=== PATIENT | male | born 1965 | race Caucasian/White ===

== ENCOUNTER → 2020-08-06 00:08 | Outpatient (CLI) | payer OTHER, SELFPAY ==
[2020-08-06 17:44] LABS: SARS-CoV-2 RNA PCR Negative
== END ==
PROVIDERS: PCP Internal Medicine; Visit Provider Internal Medicine Gastroenterology
DX: Z01.812 Encounter for preprocedural laboratory examination (principal); Z20.822 Contact with and (suspected) exposure to COVID-19
CPT/HCPCS: C9803; U0003; U0005

== ENCOUNTER 2020-08-09 01:08 | Day surgery (SDC) | payer OTHER, SELFPAY ==
[2020-07-26 14:46] VITALS: BMI 26.4
[2020-08-09 08:14] VITALS: BMI 26.6
[2020-08-09 08:18] VITALS: BP 117/72; PULSE 86; RESP 16; TEMP 36.2; O2SAT 99
--- NOTE | 2020-08-09 08:23 | WPDANESEPPF ---
Anes - Initial Pre Proc Eval Procedure: Operation Date: 08/09/20 09:30 Proposed Procedures p Colonoscopy - Sean Tang MD Date/Time: 08/09/20 08:23 Surgeon: Sean Tang MD Pre Op Diagnosis: Blood in Stool Patient Data Age: 55 Gender: M Height: 5 ft 5 in Weight: 72.8 kg Last Vital Signs Temp 97.1 F L 08/09/20 08:18 Pulse 86 08/09/20 08:18 Resp 16 08/09/20 08:18 BP 117/72 08/09/20 08:18 Pulse Ox 99 08/09/20 08:18 Allergies Allergy/AdvReac Type Severity Reaction Status Date / Time No Known Allergies Allergy Verified 08/09/20 08:13 Home Medications Medication Instructions Recorded Confirmed Type aspirin 81 mg tablet,delayed 81 mg PO DAILY 05/27/20 07/26/20 History release cetirizine 10 mg capsule 10 mg PO DAILY PRN 05/27/20 07/26/20 History Patient hx anesthesia problems: none Family hx anesthesia problems: none PMFSH Past Medical History Medical History (Updated 08/09/20 @ 08:22 by Yemi Burrell MD) Family history of colon cancer in father Hyperlipidemia SIENA (obstructive sleep apnea) Family History Family History Mother Family history of thyroid disease Father Carcinoma of colon Social History Social History (Updated 07/26/20 @ 14:45 by Ana Murguia RN) Smoking status: Never smoker Second hand tobacco smoke exposure: No Alcohol intake: current Drinks per week: 1 Alcohol use details: PT HAS AN OCCASSIONLA BEER Substance use: never Substance use type: does not use Living arrangements: with family Additional living arrangements comments: LIVES WITH SPOUSE SREEKANTH Gender identity (if verbalized by the patient): Male Sexual Orientation (if Verbalized by the Patient): Straight or Heterosexual Spiritual care concerns: No Agree to blood products: Yes Anes - Eval Final PreProcedure Day of Procedure 08/09/20 08:23 Patient weight: normal Heart: regular rate and rhythm Lungs: clear to auscultation Airway: Mallampati scale class II Neurological: alert and oriented Last oral intake: >/= 8 hours ASA classification: II Emergent: no Anesthetic plan: proceed Anesthesia type and monitoring: general GIVS and standard monitoring Informed Consent: The patient's anesthetic plan and its attendant risks and benefits were discussed with the patient/family/POA. Questions were solicited and answers provided to the satisfaction of the patient/family/POA.
[2020-08-09] MEDS: LACTATED RINGERS 1,000 ML 150 ML IV CONT (08:25)
--- NOTE | 2020-08-09 08:38 | PM.HPGS ---
History of Present Illness History of Present Illness Consent: Risks, benefits, and alternatives have been discussed and questions answered. Patient agrees to proceed with procedure. Chief complaint: Blood in Stool Narrative: Kranthi An is a 55 year old male with intermittent rectal bleeding. His father had colon cancer at 60's and he has been getting his colonoscopies every 5 years (already had 3) and last one 2018. Review of Systems Constitutional: Constitutional: Denies headache(s) and Denies weakness Eyes: Eyes: Denies blurry vision ENT: Reports Normal hearing present, Denies headache(s) and Denies neck pain Cardiovascular: Cardiovascular: Denies chest pain and Denies dyspnea Respiratory: Respiratory: Denies dyspnea Gastrointestinal: Gastrointestinal: Reports no additional gastrointestinal complaints Genitourinary: Genitourinary: Denies dysuria Musculoskeletal: Musculoskeletal: Denies neck pain Integumentary/Breasts: Skin/Breast: Denies dry skin Neurologic: Reports Normal hearing present, Denies headache(s) and Denies weakness Psychiatric: Psychiatric: Denies anxiety Endocrine: Endocrine: Denies change in body appearance Hematologic/Lymphatic: Hematologic/Lymphatic: Denies easy bleeding Allergic/Immunologic: Allergic/Immunologic: Denies urticaria PMF Past Medical History Medical History (Updated 08/09/20 @ 08:22 by Yemi Burrell MD) Family history of colon cancer in father Hyperlipidemia SIENA (obstructive sleep apnea) Family History Family History Mother Family history of thyroid disease Father Carcinoma of colon Social History Social History (Updated 07/26/20 @ 14:45 by Ana Murguia RN) Smoking status: Never smoker Second hand tobacco smoke exposure: No Alcohol intake: current Drinks per week: 1 Alcohol use details: PT HAS AN OCCASSIONLA BEER Substance use: never Substance use type: does not use Living arrangements: with family Additional living arrangements comments: LIVES WITH SPOUSE SREEKAN[facility] Gender identity (if verbalized by the patient): Male Sexual Orientation (if Verbalized by the Patient): Straight or Heterosexual Spiritual care concerns: No Agree to blood products: Yes Meds Home Medications and Allergies Home Medications Medication Instructions Recorded Confirmed Type aspirin 81 mg tablet,delayed 81 mg PO DAILY 05/27/20 07/26/20 History release cetirizine 10 mg capsule 10 mg PO DAILY PRN 05/27/20 07/26/20 History Allergies Allergy/AdvReac Type Severity Reaction Status Date / Time No Known Allergies Allergy Verified 08/09/20 08:13 Vital Signs Vital Signs - 24 hr 08/09/20 08:18 Temperature 97.1 F L Pulse Rate 86 Respiratory Rate 16 Blood Pressure 117/72 Pulse Oximetry 99 Exam Const: General: comfortable and no acute distress HENMT: General nose exam: Normal nares present Eyes: General: appearance normal, both eyes and all related structures Neck: Neck: no JVD Resp: Auscultation: clear to auscultation bilaterally Cardio: Rate: regular rate Rhythm: regular rhythm GI: Inspection: non-distended GI Palp: Yes Soft to palpation Skin: General skin exam: normal color Neuro: General: gait normal Speech: normal speech Extrem: General: normal to inspection Psych: Mental Status: mental status grossly normal Assessment and Plan Assessment and plan (1) Hematochezia: Code(s): K92.1 - Melena Status: Acute Assessment and Plan: proceed with colonoscopy, now asymptomatic (2) Family history of colon cancer in father: Code(s): Z80.0 - Family history of malignant neoplasm of digestive organs Status: Acute
[2020-08-09 09:02] VITALS: BP 92/57; PULSE 77; RESP 21; O2SAT 94
[2020-08-09 09:12] VITALS: BP 94/61; PULSE 73; RESP 21; O2SAT 95
[2020-08-09 09:22] VITALS: BP 102/62; PULSE 60; RESP 18; O2SAT 98
== END 2020-08-09 09:39 | disposition home or self-care (01) ==
PROVIDERS: PCP Internal Medicine; Visit Provider Internal Medicine Gastroenterology
PROC: 0DJD8ZZ Inspection of Lower Intestinal Tract, Via Natural or Artificial Opening Endoscopic (ICD-10-PCS; CPT 45378; principal; 2020-08-09 09:30)
DX: K62.5 Hemorrhage of anus and rectum (principal); K62.1 Rectal polyp; Z80.0 Family history of malignant neoplasm of digestive organs; K57.30 Diverticulosis of large intestine without perforation or abscess without bleeding; K64.8 Other hemorrhoids; E78.5 Hyperlipidemia, unspecified; G47.33 Obstructive sleep apnea (adult) (pediatric); Z79.82 Long term (current) use of aspirin
CPT/HCPCS: 45385; 88305; C9803; J2704; J7120; U0003; U0005

== ENCOUNTER → 2022-02-08 10:51 | Outpatient (CLI) | payer OTHER, SELFPAY ==
--- NOTE | ~2022-02-08 | XR_ITS ---
EXAMINATION: XR chest 2V 02/08/2022 11:05 INDICATION: Cough. History of pneumonia. PROCEDURE: 2 view chest COMPARISON: 05/26/2013 FINDINGS: The lungs are clear. The cardiomediastinal silhouette is within normal limits. There are no pleural effusions. There is no pneumothorax suspected. There is a prosthetic device overlying he art, possibly mitral. IMPRESSION: 1: NO ACUTE CARDIOPULMONARY DISEASE. Reviewed, dictated and finalized at location B.
== END ==
PROVIDERS: PCP Nurse Practitioner; Visit Provider Nurse Practitioner
DX: R05.9 Cough, unspecified (principal)
CPT/HCPCS: 71046

== ENCOUNTER 2024-06-20 12:30 | Outpatient (CLI) | payer OTHER, SELFPAY ==
--- OUTSIDE RECORDS SUMMARY | 2024-06-20 12:33 | XMS_ITS | Patient Health Summary ---
Author Organization [facility] Address [address] [place] [address] Care Team Providers Care Maintenance Repairer Name Role Phone Delroy Mello DO Primary Care Provider [phone] [phone] Note from [facility],non-owned Affiliates and Associated Physician Practices is amultiple site organization consisting of ambulatory clinics and hospital sitesin [place], [place], [place] and [place]. This disclosure is being madepursuant to the Care Everywhere program and may not contain all information available regarding this patient. Last updated 18.[facility] Allergies No known active allergies Medications Be aware that medications may not be up to date on this document. Always verify current medications with the patient. No known medications Social History Tobacco Use Types Packs/Day Years Used Date Smoking Tobacco: Never Smokeless Tobacco: Never Sex and Gender Information Value Date Recorded Sex Assigned at Not on file Gender Identity Not on file Sexual Orientation Not on file Last Filed Vital Signs Vital Sign Reading Time Taken Comments Blood Pressure 112/74 2018 6:36 PM CDT Pulse 55 2018 6:36 PM CDT Temperature 36.5 C (97.7 F) 2018 6:36 PM CDT Respiratory Rate 16 2018 6:36 PM CDT Oxygen Saturation 96% 2018 6:36 PM CDT Inhaled Oxygen Concentration - - Weight 74.8 kg (165 lb) 2018 6:36 PM CDT Height 165.1 cm (5' 5 ) 2018 6:36 PM CDT Body Mass Index 27.46 2018 6:36 PM CDT Care Teams Maintenance Repairer Relationship Specialty Start Date End Date Delroy Mello DO PCP - General 09/15/20
--- OUTSIDE RECORDS SUMMARY | 2024-06-20 12:33 | XMS_ITS | Referral Summary ---
Author Organization [facility] Address [address] [place] [address] Care Team Providers Care Well Drill Operator Helper Cable Tool Name Role Phone Delroy Mello DO Primary Care Provider [phone] [phone] Source Comments [facility],non-owned Affiliates and Associated Physician Practices is amultiple site organization consisting of ambulatory clinics and hospital sitesin [place], [place], [place] and [place]. This disclosure is being madepursuant to the Care Everywhere program and may not contain all information available regarding this patient. Last updated 18.[facility] Allergies No known active allergies Medications Be [...] Mass Index 27.46 2018 6:36 PM CDT Plan of Treatment Not on file Care Teams Well Drill Operator Helper Cable Tool Relationship Specialty Start Date End Date Delroy Mello DO PCP - General 09/15/20
--- OUTSIDE RECORDS SUMMARY | 2024-06-20 12:33 | XMS_ITS | Referral Summary ---
Author Organization [facility] [address] Address [address] [place] [id number] Care Team Providers Care Glass Maker Name Role Phone Delroy Mello DO Primary Care Provider [phone]- [phone] Allergies No known active allergies Medications cetirizine (ZyrTEC) 10 mg tablet Take 1 tablet (10 mg total) by mouth daily Active promethazine-DM (PROMETHAZINE-DM ) 1.25-3 mg/mL syrup Take 5 mL by mouth every 4 (four) hours as needed for cough 118 mL 11/02/2023 Active Active Problems Problem Noted Date Diagnosed Date Atrial septal defect within oval fossa 4 Overview (08/17/2016): Ostium secundum type atrial septal defect Social History Tobacco Use Types Packs/Day Years Used Date Smoking Tobacco: Never Tobacco Cessation:Counseling Given: Not Answered Alcohol Use Standard Drinks/Week Comments Yes 0 (1 standard drink = 0.6 oz pur e alcohol) Sex and Gender Information Value Date Recorded Sex Assigned at Not on file 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 Gender Identity Not on file Sexual Orientation Not on file Last Filed Vital Signs Vital Sign Reading Time Taken Comments Blood Pressure 126/83 11/02/2023 4:02 PM CDT Pulse 65 11/02/2023 4:02 PM CDT Temperature 36.1 C (97 F) 11/02/2023 4:02 PM CDT Respiratory Rate 14 11/02/2023 4:02 PM CDT Oxygen Saturation 97% 11/02/2023 4:02 PM CDT Inhaled Oxygen Concentration - - Weight 80.3 kg (177 lb) 11/02/2023 4:02 PM CDT Height 165.1 cm (5' 5 ) 11/02/2023 4:02 PM CDT Body Mass Index 29.45 11/02/2023 4:02 PM CDT Plan of Treatment Not on file Insurance [facility] Care Teams Glass Maker Relationship Specialty Start Date End Date Delroy Mello DO PCP - General 02/12/14
--- OUTSIDE RECORDS SUMMARY | 2024-06-20 12:33 | XMS_ITS | Clinical Summary ---
Author Organization [facility] [address] Address [address] [place] [id number] Care Team Providers Care Cash Register Operator Name Role Phone Delroy Mello DO Primary Care Provider [phone]- [phone] Allergies No known active allergies Medications cetirizine [...] (08/17/2016): Ostium secundum type atrial septal defect Medical History Medical History Date Comments Hx Other Medical 2014 r. 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 Gender Identity Not on file Sexual Orientation Not on file Obstetrics History Last Filed Vital Signs Vital Sign Reading [...] 11/02/2023 4:02 PM CDT Plan of Treatment Health Maintenance Due Date Last Done Comments Colon Cancer Screening-Colonoscopy 1967 Depression Screening 1967 Hepatitis C Screening 1967 Prostate Cancer Screening-PSA 1967 DTaP/Tdap/Td Vaccine (1 - Tdap) 08/08/1978 Hepatitis B Screening 08/08/1985 Regular Well Visit/Exam 18-64 08/08/1985 Zoster Vaccine (1 of 2) 08/08/2017 Covid-19 Vaccine (3 - 2023-2 5 season) 2024 01/12/2021, 12/22/2020 Influenza Vaccine (#1) 2024 Pneumococcal vaccine <65 Aged Out No longer eligible based on patient's age to complete this topic Insurance [facility] H[facility]/PPO Address: [address] [address] [place] [address] Care Teams Cash Register Operator Relationship Specialty Start Date End Date Delroy Mello DO PCP - General 02/12/14
--- OUTSIDE RECORDS SUMMARY | 2024-06-20 12:33 | XMS_ITS | Clinical Summary ---
Author Organization [facility] Address [address] [place] [address] Care Team Providers Care Electrical Products Sales Engineer Name Role Phone Delroy Mello DO Primary Care Provider [phone] [phone] Source Comments [facility],non-owned Affiliates and Associated Physician Practices is amultiple site organization consisting of ambulatory clinics and hospital sitesin [place], [place], [place] and [place]. This disclosure is being madepursuant to the Care Everywhere program and may not contain all information available regarding this patient. Last updated 18.[facility] Allergies No known active allergies Medications Be [...] 2018 6:36 PM CDT Plan of Treatment Health Maintenance Due Date Last Done Comments ANA (AGES 45-75) - COL ON CA SCREENING 1967 COLON MONITORING 1967 COLONOSCOPY - COLON CA SCREENING 1967 CT COLONOGRAPHY - COLON CA SCREENING 1967 Colorectal Cancer Screening 1967 FIT - COLON CA SCREENING 1967 FLEX SIG - COLON CA SCREENING 1967 LIPID TESTING 1967 HIV SCREENING 08/08/1982 HEPATITIS C SCREENING 08/04/1985 DTAP/TDAP/TD VACCINES (1 - Tdap) 08/08/1986 HEPATITIS B VACCINE (1 of 3 - 19+ 3-dose series) 08/08/1986 PNEUMOCOCCAL VACCINE 50+ (1 of 1 - PCV) 08/08/2017 ZOSTER VACCINE (1 of 2) 08/08/2017 SCREENING FOR DIABETES 2018 COVID-19 VACCINE (1 - 2023-2 5 season) 2024 INFLUENZA VACCINE (#1) 2024 DEPRESSION SCREENING 05/14/2024 HIB VACCINE Aged Out No longer eligi ble based on patient's age to complete this topic HPV VACCINE Aged Out No longer eligi ble based on patient's age to complete this topic MENINGOCOCCAL (Group B) VACCINE Aged Out No longer eligible based on patient's age to complete this topic MENINGOCOCCAL VACCINE Aged Out No philly steven eligible based on patient's age to complete this topic PNEUMOCOCCAL VACCINE Aged Out No long er eligible based on patient's age to complete this topic Care Teams Electrical Products Sales Engineer Relationship Specialty Start Date End Date Delroy Mello DO PCP - General 5/5/21
[2024-06-20 13:54] LABS: Basophils Absolute Auto 0.1 K/mm3 (0.0-0.1); Basophils Percent Auto 0.9 % (0.2-1.2); Eosinophils Absolute Auto 0.2 K/mm3 (0-0.3); Eosinophils Percent Auto 2.4 % (0-4.4); Hematocrit 48.1 % (42.0-52.0); Hemoglobin 15.8 g/dL (14.0-18.0); Immature Granulocyte Absolute 0.13 K/mm3 (0.00-0.031); Immature Granulocyte Percent A 1.4 % (0-0.5); Lymphocytes Absolute Auto 2.52 K/mm3 (0.9-3.2); Lymphocytes Percent Auto 27.8 % (18.3-44.2); Mean Corpuscular HGB Conc 32.8 g/dl (32-36); Mean Corpuscular Hemoglobin 28.1 pg (26-34); Mean Corpuscular Volume 85.4 fl (80-100); Mean Platelet Volume 10.7 fl (7.4-10.4); Monocytes Absolute Auto 0.6 K/mm3 (0.1-0.6); Monocytes Percent Auto 6.4 % (2.6-8.5); Neutrophils Absolute Auto 5.6 K/mm3 (1.3-6.7); Neutrophils Percent Auto 61.1 % (45.5-73.1); Platelet Count Result 271 k/mm3 (150-375); Red Blood Count 5.63 M/mm3 (4.6-6.20); Red Cell Distribution Width 12.5 % (11.5-14.5); White Blood Count 9.1 K/mm3 (4.5-10.0)
[2024-06-20 14:11] LABS: Alanine Aminotransferase 59 U/L (6-50); Albumin Level 4.3 g/dL (3.5-5.1); Alkaline Phosphatase 77 U/L (38-126); Anion Gap 7 mmol/L (4-12); Aspartate Amino Transferase 47 U/L (17-59); Bilirubin,Total 0.6 mg/dL (0.2-1.3); Blood Urea Nitrogen 21 mg/dL (9-20); Calcium 9.1 mg/dL (8.4-10.2); Carbon Dioxide 31 mmol/L (22-30); Chloride 102 mmol/L (98-107); Cholesterol 217 mg/dL (0-200); Estimated Glomerular Filt Rate > 60; Glucose 98 mg/dL (65-110); HDL Direct 40 mg/dL; Potassium 4.7 mmol/L (3.4-5.0); Sodium 140 mmol/L (137-145); Triglycerides 117 mg/dL (<150)
[2024-06-20 14:22] LABS: LDL Cholesterol Direct 146 mg/dL
[2024-06-20 14:41] LABS: Prostate Specific Antigen 0.8 ng/mL (< OR = 4.0)
== END 2024-06-20 12:31 | disposition home or self-care (01) ==
PROVIDERS: PCP Internal Medicine; Visit Provider Nurse Practitioner
DX: Z13.220 Encounter for screening for lipoid disorders (principal); Z13.29 Encounter for screening for other suspected endocrine disorder; Z12.5 Encounter for screening for malignant neoplasm of prostate
CPT/HCPCS: 36415; 80053; 80061; 84153; 85025; G0103

== ENCOUNTER 2024-07-31 09:44 | Outpatient (CLI) | payer OTHER, SELFPAY ==
--- OUTSIDE RECORDS SUMMARY | 2024-07-31 10:15 | XMS_ITS | Clinical Summary ---
Author Organization [facility] Address [address] [place] [place] [address] Care Team Providers Care Process Expert Name Role Phone Delroy Mello DO Primary Care Provider [phone] [phone] Source Comments [facility],non-owned Affiliates and Associated Physician Practices is amultiple site organization consisting of ambulatory clinics and hospital sitesin [place], [place], [place] and [place]. This disclosure is being madepursuant to the Care Everywhere program and may not contain all information available regarding this patient. Last updated 18.[facility] Allergies No known active allergies Medications Be [...] to complete this topic MENINGOCOCCAL (Group B) VACC INE SHARED DECISION-MAKING Aged Out No longer eligibl e based on patient's age to complete this topic MENINGOCOCCAL GROUPS A/C/Y/W VACCINE Aged Out No longer eligible b ased on patient's age to complete this topic PNEUMOCOCCAL VACCINE Aged Out No long er eligible based on patient's age to complete this topic Care Teams Process Expert Relationship Specialty Start Date End Date Delroy Mello DO PCP - General 09/15/20
--- NOTE | 2024-08-21 11:56 | WPDSLEEPSTUD ---
Sleep Study Date of Study: 07/31/24 Ordering Provider: Pat James NP Interpreting Physician: Crissy Tabares MD Sleep Study Type: Split Polysomnogram Height: 1.65 m Weight: 79.746 kg Body Mass Index: 29.2 Neck Circumference (inches): 17 Callahan: 10 Reason for Sleep Study Hypersomnolence Sleep History Kranthi Nichols is a 58-year-old man with excessive daytime sleepiness. He [ ] awakens from sleep feeling short of breath. He [ ] wakes at night with heartburn, belching or coughing.??He [ ] snores, [ ] snores loudly enough that others complain. He [ ] has trouble sleeping when he has a cold. He [ ] wakes up gasping for breath during the night. He [ ] has breathing problems at night. He[ ] sweats excessively at night. He [ ] notices his heart pounding or beating irregularly during the night. He [ ] falls asleep during the day. He [ ] falls asleep involuntarily, [ ] falls asleep while driving. He[ ] experiences loss of muscle tone with strong emotion. He [] has daytime difficulty at work due to excessive sleepiness. He[ ] feels paralyzed on waking or falling asleep. He[ ] experiences vivid dreams upon waking or falling asleep. He[ ] feels afraid of going to sleep. He[ ] has nightmares. He[ ] recalls his dreams. He[ ] has thoughts racing through his mind. He[ ] feels sad or depressed. He[ ] feels anxiety. He[ ] notices parts of his body jerk. He[ ] kicks during the night. He[ ] feels crawling or aching feelings in his legs. He[ ] feels leg pain at night. He[ ] has morning jaw pain, [] grinds his teeth at night. He[ ] feels bothered by pain during the day, [ ] awakened by pain during the night. He[ ] wakes up feeling stiff in the morning, and he [] wakes feeling sore or achy. He [] awakens with pain in his neck, spine, or joints. Normal bedtime is[], falling asleep[ ], waking [] times at night. Wake time is []. He typically gets [ ] hours of sleep per night. His wake up time is [ ]. He takes [] naps in the day, [] feel refreshed afterwards. Habits:??Tobacco:[ ] Caffeine:[ ]. Alcohol:[ ] Recreational substances: none PMFSH Past Medical History Medical History SIENA (obstructive sleep apnea) Hyperlipidemia Family history of colon cancer in father Family History Family History Mother Family history of thyroid disease Father Carcinoma of colon Social History Social History Smoking status: Never smoker Second hand tobacco smoke exposure: No Alcohol intake: current Drinks per week: 1 Alcohol use details: PT HAS AN OCCASSIONLA BEER Substance use: never Substance use type: does not use Living arrangements: with family Additional living arrangements comments: LIVES WITH SPOUSE SREEKANTH Occupation/Education: occupation Gender identity (if verbalized by the patient): Male Sexual Orientation (if Verbalized by the Patient): Straight or Heterosexual Spiritual care concerns: No Agree to blood products: Yes Medications Home Medications ?Medication ?Instructions ?Recorded ?Confirmed ?Type cetirizine 10 mg capsule (Zyrtec) 10 mg PO DAILY PRN Allergic 05/27/20 02/08/22 History Symptoms atorvastatin 10 mg tablet (Lipitor) 10 mg PO QHS #90 tabs 06/26/24 Rx Sleep Procedure A split night polysomnogram using the [employer] multi-channel system recorded the standard physiologic parameters including EEG, EOG, submentalis EMG, anterior tibialis EMG, EKG, body position, nasal and oral airflow using nasal pressure sensor and thermistor. Respiratory parameters of chest and abdominal movements were recorded with Respiratory Inductance Plethysmography belts. Oxygen saturation was recorded by pulse oximetry. Video monitoring was also performed. Sleep stages, periodic limb movements, and EEG arousals were scored in 30 second epochs according to the criteria of the AASM Scoring Manual. The Apnea-Hypopnea Index was calculated using CMS guidelines for definition of hypopnea while scoring respiratory events. After the baseline portion the patient met criteria for a titration with an AHI of 37.8 and desaturation to 84%. Snoring Profile Snoring was [] EEG Profile EEG was unremarkable, no evidence of seizures. Assessment and Plan Assessment and Plan (1) SIENA (obstructive sleep apnea): Code(s): G47.33 - Obstructive sleep apnea (adult) (pediatric) Status: Acute Assessment and Plan: This split night sleep study on 07/31/2024 shows severe obstructive sleep apnea, the apnea-hypopnea index was 37.8 using a 4% criteria, desaturation 84%, events much worse in the supine position, initial supine AHI was 60.4. Was successfully treated using Data The data obtained during this sleep study is adequate for interpretation. Certification This sleep study has been reviewed by a board certified sleep medicine physician.
[2024-08-21 11:58] VITALS: BMI 29.2
== END 2024-08-01 07:45 | disposition home or self-care (01) ==
PROVIDERS: PCP Internal Medicine; Visit Provider Nurse Practitioner
DX: G47.33 Obstructive sleep apnea (adult) (pediatric) (principal)
CPT/HCPCS: 95811

== ENCOUNTER 2025-03-26 15:16 | Outpatient (CLI) | payer OTHER, SELFPAY ==
--- NOTE | ~2025-03-26 | CT_ITS ---
EXAM/PROCEDURE: CT soft tissue neck w con HISTORY: neck mass, localized swelling COMPARISON: None available. TECHNIQUE: Contrast-enhanced soft tissue CT of the neck performed. FINDINGS: Interval removal pathologic size lymph nodes are present throughout the neck involving all zones on both sides. Internal jugular vein is extensively into the thoracic inlet are narrowed due to lymphadenopathy but are patent. Arterial structures are all patent. Bones are intact. No gross acute process seen in the visualized intracranial contents or visualized portions of the upper chest. Extensive mediastinal lymphadenopathy is also seen within the visualized portions of the chest. 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 Reviewed, dictated and finalized at location A. OPSYCHOLOGY SERVICE DIRECTOR IMPRESSION: Extensive lymphadenopathy throughout the field of view including visualized por tions of the mediastinum/chest highly suggestive of aggressive/malignant lympho proliferative process such as lymphoma.
--- OUTSIDE RECORDS SUMMARY | 2025-03-26 15:23 | XMS_ITS | Clinical Summary ---
Author Organization [facility] Address [address] [place] [address] Care Team Providers Care Chip Mixer Name Role Phone Delroy Mello DO Primary Care Provider [phone] [phone] Source Comments [facility],non-owned Affiliates and Associated Physician Practices is amultiple site organization consisting of ambulatory clinics and hospital sitesin [place], [place], [place] and [place]. This disclosure is being madepursuant to the Care Everywhere program and may not contain all information available regarding this patient. Last updated 18.[facility] Allergies No known active allergies Medications * Be aware that medications may not be up to date on this document. Alwaysverify current medications with the patient. No known medications Social History Tobacco Use Types Packs/Day Years Used Date Smoking Tobacco: Never Smokeless Tobacco: Never Sex and Gender Information Value Date Recorded Sex Assigned at Not on file Legal Sex Male 3:55 PM CDT Gender Identity Not on file Sexual Orientation [...] 6:36 PM CDT Height 165.1 cm (5' 5) 2018 6:36 PM CDT Body Mass Index 27.46 2018 6:36 PM CDT Plan of Treatment Health Maintenance Due Date Last Done Comments COLOGUARD (AGES 45-75) - COL ON CA SCREENING [...] of 2) 08/08/2017 SCREENING FOR DIABETES 2018 DEPRESSION SCREENING 05/14/2024 COVID-19 VACCINE (1 - 2023-2 5 season) 2025 INFLUENZA VACCINE (#1) 2025 HIB VACCINE Aged Out No longer eligi [...] patient's age to complete this topic Insurance [facility] Care Teams Chip Mixer Relationship Specialty Start Date End Date Delroy Mello DO PCP - General 09/15/20
--- OUTSIDE RECORDS SUMMARY | 2025-03-26 15:23 | XMS_ITS | Clinical Summary ---
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 Gender Identity Not on file Sexual Orientation [...] 4:02 PM CDT Height 165.1 cm (5' 5) 11/02/2023 4:02 PM CDT Body Mass Index 29.45 11/02/2023 4:02 PM CDT Plan of Treatment Health Maintenance Due Date Last Done Comments Colon Cancer Screening-Colonoscopy 1967 Depression Screening 1967 Hepatitis C Screening 1967 Prostate Cancer Screening-PSA 1967 DTaP/Tdap/Td Vaccine (1 - Tdap) 08/08/1978 Hepatitis B Screening 08/08/1985 Regular Well Visit/Exam 18-64 08/08/1985 Zoster Vaccine (1 of 2) 08/08/2017 Covid-19 Vaccine (3 - 2024-2 6 season) 2025 01/12/2021, 12/22/2020 Influenza Vaccine (#1) 2025 Pneumococcal vaccine <65 Aged Out No longer eligible based on patient's age to complete this topic Insurance [facility] Care Teams Nozzle Cement Sprayer Helper Relationship Specialty Start Date End Date Delroy Mello DO PCP - General 02/12/14
== END 2025-03-26 15:17 | disposition home or self-care (01) ==
PROVIDERS: PCP Physician Assistant; Visit Provider Physician Assistant
DX: R59.1 Generalized enlarged lymph nodes (principal)
CPT/HCPCS: 70491; Q9967